=== PATIENT | female | born 1975 | race Hispanic/Latino ===

== ENCOUNTER → 2024-08-25 | Outpatient (REF) | payer OTHER | LOC: RAD 10:48 | PROVIDERS: ATTEND Family Medicine | DX: M54.50 Low back pain, unspecified (principal); G89.29 Other chronic pain | CPT/HCPCS: 72220 ==

== ENCOUNTER → 2024-09-18 | Outpatient (REF) | payer OTHER ==
[~2024-09-18] MED LIST: IOPAMIDOL 370 MG/ML 100 ML INFUS..BTL INJ ONE
[2024-09-18 15:23] LABS: CREATININE, SERUM 0.82 mg/dL (0.57-1.11)
== END ==
LOC: CT 14:18
PROVIDERS: ATTEND Family Medicine
DX: R10.33 Periumbilical pain (principal); R19.05 Periumbilic swelling, mass or lump; M54.50 Low back pain, unspecified
CPT/HCPCS: 36415; 72148; 72220; 74177; 82565; 84520; Q9967